=== PATIENT | male | born 1980 | race Caucasian/White ===

== ENCOUNTER 2022-08-05 13:23 | Emergency (ER) | payer BC ==
[~2022-08-05] VITALS: Ht 177.8 cm; Wt 137.3 kg
[2022-08-05 13:39] VITALS: TEMP 97.2
[2022-08-05 15:34] VITALS: BP 167/87; PULSE 98
== END 2022-08-05 15:35 | disposition home or self-care (01) ==
LOC: COL.ER 13:23
DX: S63.285A Dislocation of proximal interphalangeal joint of left ring finger, initial encounter (principal); W18.09XA Striking against other object with subsequent fall, initial encounter